=== PATIENT | female | born 1975 | race African-American/Black ===

== ENCOUNTER 2021-02-23 13:33 | Emergency (ER) | payer MEDICAID ==
[~2021-02-23] VITALS: Ht 165.1 cm; Wt 87.0 kg
[2021-02-23 13:58] VITALS: BP 216/113
[2021-02-24] MEDS ORDERED: AMLO5TAB88 MT (13:06)
[2021-02-24] MEDS ORDERED: ALBU6.7H11 INH (13:08)
== END 2021-02-23 15:59 | disposition left against medical advice (07) ==
LOC: ER 13:33
DX: Z53.21 Procedure and treatment not carried out due to patient leaving prior to being seen by health care provider (principal)

== ENCOUNTER 2023-05-02 02:29 | Emergency (ER) | payer MEDICAID ==
[~2023-05-02] VITALS: Ht 175.3 cm; Wt 68.0 kg
[~2023-05-02 02:29] MED LIST: ALBU6.7H15 INH; AMLO5TAB88 MT
[2023-05-02 02:33] VITALS: O2SAT 98
[2023-05-02 03:38] VITALS: TEMP 98.7
[2023-05-02] MEDS ORDERED: LABETALOL HCL VIAL 20 MG/4 ML VIAL IV ONE (04:00)
[2023-05-02] MEDS ORDERED: ACETAMINOPHEN 325MG TABLET PO ONE (04:00)
[2023-05-02 04:46] LABS: BASOPHILS % 0.7 % (0.0-2.0); EOSINOPHILS % 4.1 % (0.0-5.0); HEMOGLOBIN. 12.7 g/dL (12.0-16.0); LYMPHOCYTES % 20.6 % (20.0-50.0); MEAN CORPUSCULAR HEMOGLOBIN 27.9 pg (28.0-32.0); MEAN CORPUSCULAR HGB CONC 33.4 g/dL (31.0-37.0); MEAN CORPUSCULAR VOLUME 83.8 fL (81.0-99.0); MEAN PLATELET VOLUME 8.8 fl (7.4-10.4); MONOCYTES % 10.7 % (2.0-8.0); NEUTROPHILS % 63.9 % (40.0-76.0); PLATELET 255 x1000/uL (130-400); RED BLOOD CELL COUNT 4.54 mill/uL (4.2-5.4); WHITE BLOOD COUNT 8.1 x1000/uL (4.5-11.0)
[2023-05-02 04:51] LABS: CHLORIDE 95 mEq/L (98-107); INDEX HEMOLYSI 2 (1-3); INDEX ICTERIC 1 (1-4); INDEX LIPEMIC 1 (1-3); SODIUM 135 mEq/L (136-145)
[2023-05-02 05:02] LABS: ALANINE AMINOTRANSFERASE 16 IU/L (13-61); ALBUMIN 3.8 g/dL (3.4-5.0); ASPARTATE AMINOTRANSFERASE 34 IU/L (15-37); BILIRUBIN TOTAL 0.3 mg/dL (0.1-1.0); CARBON DIOXIDE 33 mEq/L (21-32); ETHANOL BLOOD < 10 mg/dL (-10); GLUCOSE 103 mg/dL (70-105); NT PRO B-TYPE NATRIURETIC PEP 4289 pg/mL (5-125); PROTEIN TOTAL 7.8 g/dL (6.0-8.3); UREA NITROGEN BLOOD 42 mg/dL (7-21)
[2023-05-02 05:13] LABS: TROPONIN I HIGH SENSITIVITY 78 ng/L (<54)
[2023-05-02 05:15] LABS: *AMPHETAMINES SCREEN URINE NEGATIVE (NEGATIVE); *BARBITURATES SCREEN URINE NEGATIVE (NEGATIVE); *BENZODIAZEPINES SCREEN URINE NEGATIVE (NEGATIVE); *COCAINE SCREEN URINE NEGATIVE (NEGATIVE); CANNABINOID URINE SCREEN NEGATIVE (NEGATIVE); ECSTASY MDMA SCREEN URINE NEGATIVE (NEGATIVE); METHADONE URINE SCREEN NEGATIVE (NEGATIVE); OPIATES URINE SCREEN NEGATIVE (NEGATIVE); PHENCYCLIDINE URINE SCREEN NEGATIVE (NEGATIVE)
[2023-05-02] MEDS ORDERED: FUROSEMIDE 40MG/4ML VIAL IVP NR (05:30)
[2023-05-02] MEDS ORDERED: ASPIRIN 325MG EC TABLET PO NR (05:30)
[2023-05-02 05:38] VITALS: BP 231/129; PULSE 61; RESP 13
[2023-05-03] MEDS ORDERED: AMLO5TAB88 MT (09:21)
[2023-05-03] MEDS ORDERED: HYDR-4134 MT (09:21)
== END 2023-05-02 08:25 | disposition home or self-care (01) ==
LOC: ER 02:48
DX: I11.0 Hypertensive heart disease with heart failure (principal); I50.9 Heart failure, unspecified; N17.9 Acute kidney failure, unspecified; R51.9 Headache, unspecified; F17.200 Nicotine dependence, unspecified, uncomplicated; F12.10 Cannabis abuse, uncomplicated; Z00.00 Encounter for general adult medical examination without abnormal findings; Z91.199 Patient's noncompliance with other medical treatment and regimen due to unspecified reason; Z53.29 Procedure and treatment not carried out because of patient's decision for other reasons
CPT/HCPCS: 80053; 80305; 80320; 83880; 85025; 84484; 36415; 71045; 70450; 93970; 93005; 96374; 96375; 99285; J1940; J3490; Z7610 ×3; G0480

== ENCOUNTER 2023-05-03 08:14 | Emergency (ER) | payer MEDICAID ==
[~2023-05-03] VITALS: Ht 167.6 cm; Wt 86.0 kg
[2023-05-03 08:27] VITALS: BP 193/134; PULSE 66; RESP 20; TEMP 98.2; O2SAT 100
[2023-05-03] MEDS ORDERED: HYDRALAZINE HCL 25MG TABLET PO ONE (09:00)
[2023-05-03] MEDS ORDERED: AMLO5TAB88 MT (09:21)
[2023-05-03] MEDS ORDERED: HYDR-4134 MT (09:21)
== END 2023-05-03 10:28 | disposition home or self-care (01) ==
LOC: ER 08:26
DX: I10 Essential (primary) hypertension (principal)
CPT/HCPCS: 71046; 99283